=== PATIENT | female | born 1975 | race Caucasian/White ===

== ENCOUNTER 2017-10-03 13:49 | Outpatient (CLI) | payer OTHER ==
[~2017-10-03] VITALS: Ht 154.9 cm; Wt 63.0 kg
[2017-10-03 14:38] VITALS: BP 123/77
[2017-10-03] MEDS ORDERED: ZANTAC150 MG PO (14:53)
[2017-10-03] MEDS ORDERED: SEROQUEL100 MG PO (14:53)
[2017-10-03 16:15] VITALS: BP 140/79
[2017-10-03 16:17] VITALS: BP 129/71
[2017-10-03 17:00] LABS: BASOPHIL (%) 0.3 % (0-1); EOSINOPHIL (%) 0.5 % (0-5); EOSINOPHIL COUNT 0.1 K/uL (0-0.3); HEMATOCRIT 35.2 % (36.0-46.0); HEMOGLOBIN 11.9 G/DL (11.9-15.5); IMMATURE GRANULOCYTE (%) 0.4 % (0.0-0.7); LYMPHOCYTE (%) 17.6 % (15-42); MCH 30.6 PG (29.0-34.0); MCHC 33.8 G/DL (30.0-36.0); MCV 90.5 FL (83-99); MONOCYTE (%) 5.5 % (3-12); MONOCYTE COUNT 0.6 K/uL (0-0.8); NEUTROPHIL (%) 75.7 % (45-76); NEUTROPHIL COUNT 8.7 K/uL (1.8-6.4); PLATELET COUNT 233 K/uL (156-360); RBC DIS.WIDTH-CV 13.1 % (11.8-14.6); RBC DIS.WIDTH-SD 42.5 % (39-53); RED BLOOD COUNT 3.89 M/uL (3.80-5.20); WHITE BLOOD COUNT 11.4 K/uL (4.1-10.2)
[2017-10-03 17:04] LABS: APPEARANCE CLOUDY ((CLEAR)); BILIRUBIN NEGATIVE; BLOOD NEGATIVE; COLOR YELLOW ((YELLOW)); GLUCOSE (STRIP) NEGATIVE; KETONES 20; LEUKOCYTES NEGATIVE; NITRITE NEGATIVE; PROTEIN (STRIP) NEGATIVE; SPECIFIC GRAVITY 1.011 (1.000-1.030); UROBILINOGEN 0.2 MG/DL (0.2-1.0)
[2017-10-03 17:08] LABS: SOURCE URINE
[2017-10-03 17:19] LABS: EPITHELIAL CELLS RARE /HPF; RED BLOOD CELLS RARE /HPF (0-5); WHITE BLOOD CELLS RARE /HPF (0-5)
[2017-10-03 17:20] LABS: AMORPHOUS PHOSPHATE CRYSTALS 4+; BACTERIA RARE /HPF; MUCUS NONE SEEN /LPF; UCUL ADDED? NO
[2017-10-03 17:25] LABS: ALBUMIN 3.5 G/DL (3.2-4.8); ALKALINE PHOSPHATASE 94 IU/L (3-129); ALT (GPT) 30 IU/L (3-49); AST (GOT) 20 IU/L (2-34); CHLORIDE 102 MEQ/L (99-109); CREATININE 0.4 MG/DL (0.6-1.3); GFR ESTIMATE (CALCULATED) > 59 mL/min/; GLUCOSE 73 mg/dL (70-99); SODIUM 140 MEQ/L (136-147); TOTAL BILIRUBIN 0.4 MG/DL (0.0-1.0); TOTAL PROTEIN 5.9 G/DL (6.4-8.3); UREA NITROGEN (BUN) 4 mg/dL (9-23)
[2017-10-03 20:20] VITALS: BP 111/59
[2017-10-03 21:14] LABS: CANDIDA DNA PROBE NEGATIVE; GARDNERELLA DNA PROBE NEGATIVE; TRICHOMONAS DNA PROBE NEGATIVE
[2017-10-03 21:52] LABS: AMPHETAMINE NEGATIVE (500 ng/mL); BARBITURATES NEGATIVE (200 ng/mL); BENZODIAZEPINES NEGATIVE (150 ng/mL); BUPRENORPHINE NEGATIVE (10 ng/mL); COCAINE NEGATIVE (150 ng/mL); METHADONE NEGATIVE (200 ng/mL); METHAMPHETAMINE NEGATIVE (500 ng/mL); OPIATES (MORPHINE) NEGATIVE (100 ng/mL); OXYCODONE NEGATIVE (100 ng/mL); PHENCYCLIDINE NEGATIVE (25 ng/mL); PROPOXYPHENE NEGATIVE (300 ng/mL); THC CANNABINOIDS NEGATIVE (50 ng/mL); TRICYCLIC ANTIDEPRESSANTS NEGATIVE (300 ng/mL)
[2017-10-03 23:01] VITALS: BP 103/62
[2017-10-04 03:06] VITALS: BP 120/70
[2017-10-04 04:22] VITALS: BP 125/60
[2017-10-04 07:35] VITALS: BP 122/69
[2017-10-04] MEDS ORDERED: COLACE100 MG PO (10:00)
[2017-10-04] MEDS ORDERED: SUCRALFATE1 GM/10 ML PO (10:01)
[2017-10-04 11:21] LABS: TREPONEMA ANTIBODY NEGATIVE (NEGATIVE)
[2017-10-04 12:01] LABS: HEPATITIS B SURFACE ANTIGEN Nonreactive
[2017-10-04 12:02] LABS: ANTI-HEPATITIS A VIRUS (IGM) Nonreactive; HEPATITIS C ANTIBODY Nonreactive
[2017-10-04 12:04] LABS: ANTI-HEPATITIS B CORE (IGM) Nonreactive; HIV-1/2 AB/AG COMBO Nonreactive
[2017-10-05 12:33] LABS: CHLAMYDIA TRACHOMATIS NEGATIVE; NEISSERIA GONORRHOEAE NEGATIVE
== END 2017-10-04 10:14 | disposition home or self-care (01) ==
LOC: EME 13:49 → EDSTATUS 14:22 → LDRP-OP 14:26 → 2WEST 14:27
PROVIDERS: Obstetrics & Gynecology
DX: O26.893 Other specified pregnancy related conditions, third trimester (principal); R11.2 Nausea with vomiting, unspecified; R12 Heartburn; O99.613 Diseases of the digestive system complicating pregnancy, third trimester; K59.00 Constipation, unspecified; O09.33 Supervision of pregnancy with insufficient antenatal care, third trimester; O09.523 Supervision of elderly multigravida, third trimester; O99.343 Other mental disorders complicating pregnancy, third trimester; F32.9 Major depressive disorder, single episode, unspecified; F41.9 Anxiety disorder, unspecified; O99.333 Smoking (tobacco) complicating pregnancy, third trimester; F17.200 Nicotine dependence, unspecified, uncomplicated; O99.323 Drug use complicating pregnancy, third trimester; F11.20 Opioid dependence, uncomplicated; Z3A.34 34 weeks gestation of pregnancy; Z88.5 Allergy status to narcotic agent; Z86.14 Personal history of Methicillin resistant Staphylococcus aureus infection
CPT/HCPCS: 59025; 80053; 80074; 81003; 85025; 86780; 87081; 87389; 87480; 87491; 87510; 87591; 87660; G0378; J2765; J7120